=== PATIENT | female | born 1960 | race Caucasian/White ===

== ENCOUNTER 2017-08-04 13:10 | Inpatient (IN) | payer MEDICARE, OTHER ==
[~2017-08-04] VITALS: Ht 154.9 cm; Wt 85.5 kg
[~2017-08-04 13:10] MED LIST: ALDACTONE100 MG PO; BUSPIRONE HCL15 MG PO; FERROUS SULFAT324 MG PO; FUROSEMIDE40 MG PO; METOPROLOL SUCC25 MG PO; MIDODRINE HCL10 MG PO; OMEPRAZOLE20 MG PO; OXYCODONE-ACET1 EAC3 PO; SEROQUEL XR400 MG PO; VIIBRYD40 MG PO
[2017-08-04] MEDS ORDERED: ALBUTEROL SULF 0.083% NEB SOLN 3 ML NEB NEB STA (14:22)
[2017-08-04] MEDS ORDERED: MORPHINE SULFAT30 M2 PO (14:29)
[2017-08-04] MEDS ORDERED: TEMAZEPAM15 MG PO (14:29)
[2017-08-04] MEDS ORDERED: IPRATROPIUM BROMIDE 0.02% 2.5 ML NEB NEB ONE (14:30)
--- NOTE | 2017-08-04 17:13 | History and Physical ---
CHIEF COMPLAINT: Shortness of breath. HISTORY OF PRESENT ILLNESS: This is a 57-year-old white woman, who presents to [facility] Emergency Room with a 1-week history of worsening shortness of breath. The patient states she checks her oxygen at home, and her readings have been around 80%, and that is at rest. The patient complains of slight nonproductive cough. The patient states she does feel ill. Denies any fever or chills. In the emergency room, she was found to have oxygen saturation 74% on 4 L of oxygen. Thus, she was started on 100% nonrebreather mask. The patient's oxygen saturation did improve to 92%. The patient had a chest x-ray done in the emergency room which revealed bilateral interstitial opacities as well as enlargement of the cardiomediastinal silhouette. The patient was found to have BUN and creatinine of 21 and 1.6 respectively, but this is her baseline. The patient was also found to be leukopenic with a white blood cell count of 3900 with 80% segmented neutrophils. Also, the patient's hemoglobin was 10.6 g per dL. Platelets were 75,000. The patient was admitted for further evaluation and treatment. REVIEW OF SYSTEMS GENERAL: Weight has been stable. No fever or chills, but she has been very weak in the last 7 days. HEENT: No headache. No visual changes. CARDIOVASCULAR/RESPIRATORY: Complains of worsening shortness of breath and nonproductive cough over the last week. Denies any chest pain or tightness. GI: Denies any nausea, vomiting, diarrhea, constipation. : No UTI symptoms. NEUROMUSCULAR: Complains of global weakness. Denies any focal limb weakness or numbness. ALLERGIES 1. LYRICA. 2. NEURONTIN. 3. ZANAFLEX. MEDICATIONS 1. Valacyclovir 500 mg b.i.d. 2. Levothyroxine 25 mcg daily. 3. Albuterol/ipratropium nebulized treatments q.i.d. for shortness of breath or wheezing. 4. Combivent inhaler 2 puffs q.i.d. 5. Ropinirole 0.5 mg b.i.d. 6. Lactulose 20 g t.i.d. p.r.n. constipation. 7. Denavir 1% topical cream applied to the cold sore area as needed. 8. BuSpar 15 mg q.i.d. 9. Xyzal 5 mg daily. 10. Viibryd 40 mg daily. 11. Spironolactone 100 mg daily. 12. Pantoprazole 40 mg daily. 13. Metoprolol succinate 25 mg daily. 14. Potassium chloride 20 mEq daily. 15. Furosemide 40 mg b.i.d. 16. Magnesium oxide 400 mg daily. 17. Vitamin B12 1,000 mcg daily. 18. Vitamin D3 2,000 units daily. 19. Morphine sulfate extended release 15 mg q.i.d. 20. Ferrous sulfate 325 mg daily. 21. Seroquel 400 mg nightly. 22. Temazepam 15 mg nightly p.r.n. insomnia. PAST MEDICAL HISTORY 1. Chronic obstructive pulmonary disease. 2. Chronic diastolic congestive heart failure. 3. Liver cirrhosis. 4. Stage-3 chronic kidney disease. 5. Pulmonary hypertension. 6. Tobacco abuse. 7. Depression. 8. Peripheral neuropathy. 9. Chronic marijuana use. 10. Obesity. 11. Bipolar disorder. 12. Pancytopenia secondary to liver cirrhosis. 13. Hepatitis C infection. SURGICAL HISTORY 1. Total abdominal hysterectomy. 2. Lumbar epidural steroid injections. FAMILY HISTORY: Adult daughter with adult-onset diabetes mellitus. SOCIAL HISTORY: This woman is single, but she lives with her adult daughter. The patient does smoke tobacco as well as marijuana. The patient states she drinks alcohol occasionally. Today, she denies any history of intravenous drug use. The patient is unemployed and receiving disability benefits. PHYSICAL EXAMINATION GENERAL: She is awake, alert and fully oriented. She is in no respiratory distress, but she is mildly dyspneic. VITAL SIGNS: Blood pressure 118/75, pulse 82, respiratory rate 22. Oxygen saturation was 74% on 4 L of oxygen, but currently is 92% on nonrebreather mask. Temperature is 96.9. Height is 5 feet 2 inches, and weight is 180 pounds. Calculated body mass index is 33. INTEGUMENT: Skin is warm and dry. No pallor, jaundice or diaphoresis. HEENT: Anicteric sclerae with moist mucous membranes. The patient is edentulous. NECK: Supple. No evidence of jugular venous distention. CARDIOVASCULAR: Distant heart sounds. Regular rate and rhythm with an S3 gallop. LUNGS: The patient has crackles at the bases as well as faint expiratory wheezes bilaterally. ABDOMEN: Obese, benign. EXTREMITIES: Trace edema in the bilateral lower legs. NEUROLOGIC: Intact. No gross focal deficits appreciated. DIAGNOSES 1. Bilateral pneumonia, likely gram-negative alysa. 2. [id number] diastolic congestive heart failure. 3. Chronic obstructive pulmonary disease exacerbation. 4. Stage-3 chronic kidney disease. 5. Pulmonary hypertension. PLAN 1. Order blood cultures. 2. Nebulized bronchodilators. 3. Will continue 100% nonrebreather mask to help address the patient's hypoxia. 4. Will order intravenous furosemide. 5. Follow renal function as well as electrolytes. 6. Will start intravenous antibiotics for the patient's pneumonia. 7. Order a 2-D echocardiogram. 8. Highly recommend tobacco cessation. 9. Highly recommend marijuana smoking cessation. I spent 50 minutes in the care of this patient. Job#: [id number]
[2017-08-04] MEDS: VANCOMYCIN 1GM/NS 250 ML 250 ML IV SCH (17:15)
[2017-08-04] MEDS ORDERED: CEFTRIAXONE SOD 1 GM VIAL IM ONE (18:00)
[2017-08-04 18:21] LABS: CREATINE KINASE MB 1.1 ng/mL (0.00-5.00); TROPONIN I 0.008 ng/mL (0-0.300)
[2017-08-04 20:00] VITALS: BP 106/59
[2017-08-04] MEDS ORDERED: FUROSEMIDE INJ 10 MG/ML 4 ML VIAL IV ONE (21:30)
[2017-08-04] MEDS: TEMAZEPAM 15 MG CAP PO SCH (21:39)
[2017-08-04] MEDS: CEFEPIME HCL 1 GM VIAL IV SCH (21:39)
[2017-08-04] MEDS: BUSPIRONE HCL 5 MG TAB PO SCH (21:39)
[2017-08-04] MEDS ORDERED: QUETIAPINE FUMARATE 400 MG PO SCH (22:00)
[2017-08-04 22:56] VITALS: BP 106/59
[2017-08-04] MEDS ORDERED: ALBUTEROL/IPRATROPIUM 3 ML NEB NEB SCH (23:00)
[2017-08-04] MEDS: MORPHINE SULFATE 15MG TAB CR PO SCH (23:00)
[2017-08-05] VITALS: BP 112/85
[2017-08-05 03:18] VITALS: BP 106/59
[2017-08-05 03:20] VITALS: BP 106/59
--- NOTE | 2017-08-05 06:27 | Diagnostic Imaging Report ---
CHEST SINGLE (PORTABLE), 08/05/2017 5:00 AM Technique: CHEST SINGLE (PORTABLE) Comparison: 04/09/2013 Clinical history: \S\CHF and bibasilar pneumonia \[id number] \S\0540 \S\Y Findings: Heart/mediastinum: Mildly enlarged, accentuated by technique Lungs/pleural spaces: Prominent interstitial and vascular markings. Scattered linear scarring. No effusion or pneumothorax.. Impression: Prominent interstitial markings which may be due to chronic lung change and/or central vascular congestion. Recommend follow-up upright PA and lateral when able. Signed by: Dr Thu Myles MD on 08/05/2017 6:24 AM
[2017-08-05 07:04] LABS: BASOPHILS % 0.3 % (0.0-1.0); EOSINOPHILS % 1.1 % (0.0-6.0); HEMATOCRIT 31.2 % (34.2-44.1); HEMOGLOBIN 10.2 g/dL (12.0-16.0); LYMPHOCYTES # (AUTO) 0.5 (1.0-3.2); MEAN CORPUSCULAR HEMOGLOBIN 32.6 pg (28-32); MEAN CORPUSCULAR HGB CONC 32.7 g/dL (31-35); MEAN CORPUSCULAR VOLUME 99.7 fL (81-99); MONOCYTES # (AUTO) 0.4 (0.2-0.8); MONOCYTES % 10.5 % (4.4-11.3); NEUTROPHILS # (AUTO) 2.7 (2.1-6.9); NEUTROPHILS % 73.5 % (38.7-80.0); RED BLOOD COUNT 3.13 x10e6/uL (3.6-5.1); RED CELL DISTRIBUTION WIDTH 14.2 % (11.7-14.4)
[2017-08-05 07:36] LABS: ALBUMIN 3.4 g/dL (3.5-5.0); ALBUMIN/GLOBULIN RATIO 0.7 (0.8-2.0); ANION GAP 17.4 mmol/L (8-16); CALCIUM 9.1 mg/dL (8.4-10.2); CREATININE, SERUM 1.72 mg/dL (0.57-1.11); POTASSIUM 4.4 mmol/L (3.5-5.1)
[2017-08-05 07:52] LABS: PLATELET COUNT 87 x10e3/uL (140-360)
[2017-08-05] MEDS: FERROUS SULFATE 325 MG TAB PO SCH (08:01)
[2017-08-05] MEDS: BUSPIRONE HCL 5 MG TAB PO SCH ×4 (08:01→21:00)
[2017-08-05] MEDS: PANTOPRAZOLE SOD 40 MG TABEC PO SCH (08:01)
[2017-08-05] MEDS: MORPHINE SULFATE 15MG TAB CR PO SCH ×3 (08:01→21:56)
[2017-08-05] MEDS: FUROSEMIDE 40 MG TAB PO SCH (08:01)
[2017-08-05] MEDS: CEFEPIME HCL 1 GM VIAL IV SCH ×2 (08:01→21:00)
[2017-08-05] MEDS: METOPROLOL SUCCINATE 25 MG TAB XL PO SCH (08:02)
[2017-08-05] MEDS: VILAZODONE HYDROCHLORIDE 40 MG PO SCH (08:02)
[2017-08-05 08:07] LABS: CREATINE KINASE MB 0.9 ng/mL (0.00-5.00); TROPONIN I 0.012 ng/mL (0-0.300)
[2017-08-05] MEDS ORDERED: METOPROLOL TARTRATE INJ 1 MG/ML VIAL IV STA ×2 (08:20→08:49)
[2017-08-05] MEDS ORDERED: FUROSEMIDE INJ 10 MG/ML 4 ML VIAL IV ONE ×2 (08:30→09:00)
[2017-08-05] MEDS ORDERED: LORAZEPAM 0.5 MG TAB PO ONE ×2 (08:30→09:00)
[2017-08-05] MEDS ORDERED: MORPHINE SULFATE 30 MG TAB ER PO SCH (09:00)
[2017-08-05 10:39] VITALS: BP 114/64
[2017-08-05] MEDS: LEVALBUTEROL HCL SOLN NEBU 0.63 MG/3 ML NEB INH SCH ×3 (11:00→20:30)
[2017-08-05] MEDS: IPRATROPIUM BROMIDE 0.02% 2.5 ML NEB NEB SCH ×3 (11:00→20:30)
[2017-08-05] MEDS ORDERED: DIGOXIN INJ 0.25 MG/ML 2 ML AMP IV STA (11:11)
[2017-08-05] MEDS ORDERED: SODIUM CHLORIDE 0.9% 250ML 250 ML ONE (16:34)
[2017-08-05] MEDS: VANCOMYCIN 1GM/NS 250 ML 250 ML IV SCH (16:40)
[2017-08-05 16:56] VITALS: BP 104/50
[2017-08-05] MEDS ORDERED: DIGOXIN INJ 0.25 MG/ML 2 ML AMP IV ONE (17:00)
[2017-08-05 17:21] LABS: CREATINE KINASE MB 0.8 ng/mL (0.00-5.00); TROPONIN I 0.011 ng/mL (0-0.300)
[2017-08-05] MEDS ORDERED: VANCOMYCIN HCL 1GM/NS 250 ML BAG IV SCH (17:30)
[2017-08-05 20:00] VITALS: BP 97/58
[2017-08-05] MEDS: TEMAZEPAM 15 MG CAP PO SCH (21:00)
[2017-08-06] VITALS: BP 101/65
[2017-08-06] MEDS: IPRATROPIUM BROMIDE 0.02% 2.5 ML NEB NEB SCH ×6 (01:00→23:25)
[2017-08-06] MEDS: LEVALBUTEROL HCL SOLN NEBU 0.63 MG/3 ML NEB INH SCH ×6 (01:00→23:25)
[2017-08-06 04:00] VITALS: BP 96/68
[2017-08-06] MEDS: MORPHINE SULFATE 15MG TAB CR PO SCH ×3 (06:00→21:39)
[2017-08-06 07:08] LABS: BASOPHILS % 0.3 % (0.0-1.0); EOSINOPHILS # (AUTO) 0.1 (0.0-0.4); HEMATOCRIT 30.2 % (34.2-44.1); HEMOGLOBIN 9.6 g/dL (12.0-16.0); LYMPHOCYTES # (AUTO) 0.4 (1.0-3.2); LYMPHOCYTES % 14.7 % (18.0-39.1); MEAN CORPUSCULAR HEMOGLOBIN 31.9 pg (28-32); MEAN CORPUSCULAR HGB CONC 31.8 g/dL (31-35); MEAN CORPUSCULAR VOLUME 100.3 fL (81-99); MONOCYTES # (AUTO) 0.3 (0.2-0.8); MONOCYTES % 9.3 % (4.4-11.3); NEUTROPHILS # (AUTO) 2.2 (2.1-6.9); PLATELET COUNT 63 x10e3/uL (140-360); RED BLOOD COUNT 3.01 x10e6/uL (3.6-5.1); RED CELL DISTRIBUTION WIDTH 13.6 % (11.7-14.4)
[2017-08-06 07:30] LABS: ANION GAP 14.5 mmol/L (8-16); CALCIUM 9.2 mg/dL (8.4-10.2); CREATININE, SERUM 1.54 mg/dL (0.57-1.11); POTASSIUM 3.5 mmol/L (3.5-5.1)
[2017-08-06 07:57] VITALS: BP 102/55
[2017-08-06 08:27] LABS: EOSINOPHILS % (MANUAL) 1 % (0-7); LYMPHOCYTES % (MANUAL) 16 % (19-48); MONOCYTES % (MANUAL) 6 % (3.4-9.0); NEUTROPHILS % (MANUAL) 77 % (40-74); PLATELET ESTIMATE MODERATELY DECREASED; PLATELET MORPHOLOGY COMMENT NORMAL; RBC MORPHOLOGY COMMENT NORMAL
[2017-08-06] MEDS: VILAZODONE HYDROCHLORIDE 40 MG PO SCH (09:00)
[2017-08-06] MEDS: CEFEPIME HCL 1 GM VIAL IV SCH ×2 (09:23→21:00)
[2017-08-06] MEDS: BUSPIRONE HCL 5 MG TAB PO SCH ×4 (09:23→21:00)
[2017-08-06] MEDS: FUROSEMIDE 40 MG TAB PO SCH (09:24)
[2017-08-06] MEDS: PANTOPRAZOLE SOD 40 MG TABEC PO SCH (09:24)
[2017-08-06] MEDS: METOPROLOL SUCCINATE 25 MG TAB XL PO SCH (09:24)
[2017-08-06] MEDS: FERROUS SULFATE 325 MG TAB PO SCH (09:24)
[2017-08-06] MEDS ORDERED: FUROSEMIDE INJ 10 MG/ML 4 ML VIAL IV ONE (10:00)
[2017-08-06] MEDS ORDERED: POTASSIUM CHLORIDE 10 MEQ TABCR PO ONE (10:00)
[2017-08-06 11:38] VITALS: BP 132/70
[2017-08-06 15:50] VITALS: BP 138/62
[2017-08-06] MEDS: VANCOMYCIN 1GM/NS 250 ML 250 ML IV SCH (17:20)
--- NOTE | 2017-08-06 18:09 | Diagnostic Imaging Report ---
PROCEDURE: Frontal and lateral views of the chest. COMPARISON: 08/05/2017 INDICATIONS: SOB, COPD FINDINGS: Lines/tubes: None. Lungs: There are diffuse interstitial opacities. There is thickening of the minor fissure.. Pleura: Blunting of the costophrenic angles may be due to pleural thickening or trace pleural effusions. No pneumothorax. Heart and mediastinum: The heart and the mediastinum are normal. Bones: No acute bony abnormality. The bones are diffusely osteopenic. IMPRESSION: Diffuse interstitial opacities with trace pleural effusions or pleural thickening. The findings may represent interstitial edema or chronic interstitial lung disease. This patient may benefit from a CT of the chest. Dictated by: Rashi Hassan M.D. on 08/06/2017 at 18:18 Electronically approved by: Rashi Hassan M.D. on 08/06/2017 at 18:18
[2017-08-06 20:20] VITALS: BP 136/61
[2017-08-06] MEDS: TEMAZEPAM 15 MG CAP PO SCH (21:00)
[2017-08-07] VITALS: BP 108/56
[2017-08-07] MEDS: IPRATROPIUM BROMIDE 0.02% 2.5 ML NEB NEB SCH ×4 (03:03→14:25)
[2017-08-07] MEDS: LEVALBUTEROL HCL SOLN NEBU 0.63 MG/3 ML NEB INH SCH ×4 (03:03→14:25)
[2017-08-07 04:45] VITALS: BP 130/78
[2017-08-07] MEDS: MORPHINE SULFATE 15MG TAB CR PO SCH ×2 (05:42→14:00)
[2017-08-07 07:35] VITALS: BP 112/58
[2017-08-07 07:37] LABS: BASOPHILS % 0.5 % (0.0-1.0); EOSINOPHILS # (AUTO) 0.1 (0.0-0.4); EOSINOPHILS % 1.7 % (0.0-6.0); HEMATOCRIT 30.9 % (34.2-44.1); HEMOGLOBIN 10.3 g/dL (12.0-16.0); LYMPHOCYTES # (AUTO) 0.6 (1.0-3.2); LYMPHOCYTES % 13.9 % (18.0-39.1); MEAN CORPUSCULAR HEMOGLOBIN 32.4 pg (28-32); MEAN CORPUSCULAR HGB CONC 33.3 g/dL (31-35); MEAN CORPUSCULAR VOLUME 97.2 fL (81-99); MONOCYTES # (AUTO) 0.4 (0.2-0.8); MONOCYTES % 9.3 % (4.4-11.3); NEUTROPHILS % 74.4 % (38.7-80.0); PLATELET COUNT 62 x10e3/uL (140-360); RED BLOOD COUNT 3.18 x10e6/uL (3.6-5.1); RED CELL DISTRIBUTION WIDTH 13.8 % (11.7-14.4)
[2017-08-07 07:42] VITALS: BP 112/58
[2017-08-07 08:00] LABS: ANION GAP 13.2 mmol/L (8-16); CALCIUM 8.9 mg/dL (8.4-10.2); CREATININE, SERUM 1.23 mg/dL (0.57-1.11); MAGNESIUM 1.7 MG/DL (1.3-2.1); POTASSIUM 3.2 mmol/L (3.5-5.1)
[2017-08-07] MEDS: METOPROLOL SUCCINATE 25 MG TAB XL PO SCH (09:00)
[2017-08-07] MEDS: VILAZODONE HYDROCHLORIDE 40 MG PO SCH (09:00)
[2017-08-07] MEDS ORDERED: POTASSIUM CHLORIDE 20 MEQ TAB CR PO ONE ×2 (09:00→16:30)
[2017-08-07] MEDS: FUROSEMIDE 40 MG TAB PO SCH (09:27)
[2017-08-07] MEDS: CEFEPIME HCL 1 GM VIAL IV SCH (09:27)
[2017-08-07] MEDS: PANTOPRAZOLE SOD 40 MG TABEC PO SCH (09:27)
[2017-08-07] MEDS: FERROUS SULFATE 325 MG TAB PO SCH (09:27)
[2017-08-07] MEDS: BUSPIRONE HCL 5 MG TAB PO SCH ×2 (09:27→13:52)
[2017-08-07 11:57] VITALS: BP 110/53
[2017-08-07 16:11] VITALS: BP 119/59
[2017-08-07] MEDS ORDERED: LASIX40 MG PO (16:50)
[2017-08-07] MEDS ORDERED: CEFUROXIME500 MG PO (16:53)
[2017-08-07] MEDS ORDERED: CEFTIN250 MG/5 M PO (16:55)
--- NOTE | 2017-08-08 15:57 | Discharge Summary ---
This is a 57-year-old female with a past medical history positive for COPD who came here with a 1-week history of worsening shortness of breath. Apparently the oxygen saturation at home was around 80%. Chest x-ray done in the emergency room revealed bilateral interstitial opacities as well as enlargement of the cardiomediastinal silhouette. Patient was diagnosed with COPD exacerbation, pneumonia, diastolic CHF, chronic AFib, cirrhosis, pulmonary hypertension by Dr. Dumont. She is feeling better. She is going home tomorrow. Oxygen saturation is 99%. She is on oxygen right now. She is asymptomatic. She is feeling better. On physical exam, the heart shows regular rhythm, normal S1, S2 sounds. Lungs are clear bilaterally. Abdomen is soft. Extremities show no evidence of cyanosis, edema or trauma. On the blood work, BNP 140, potassium 3.2, chloride 95, CO2 35, BUN 13, creatinine 1.23, glucose 100. CBC: White blood count 4.09, hemoglobin 10.3, hematocrit 30.9, platelet count 62,000. AST 27, ALT 9, total bilirubin 0.6, alkaline phosphatase 87. FINAL IMPRESSION 1. Bilateral pneumonia. 2. Chronic obstructive pulmonary disease exacerbation. 3. Atrial fibrillation with rapid ventricular response. 4. Acute diastolic congestive heart failure. 5. Pulmonary hypertension. 6. Anxiety. 7. Chronic renal insufficiency, stage 3. PLAN OF TREATMENT: Patient is going home on Ceftin 500 mg twice a day for 7 days, potassium 20 mEq daily, Lasix 40 mg twice a day. Continue with the home oxygen. Continue with Protonix 40 mg daily. Continue with ferrous sulfate 325 mg daily. He is taking also BuSpar 15 mg q.6 h. as needed and metoprolol 25 mg daily. The patient is going to follow up with Dr. Dumont in a week. ELIOT MCDONALD MD Job#: [id number]
== END 2017-08-07 18:14 | disposition home or self-care (01) | DRG 177 ==
LOC: FSED 13:10 → EDBEDREQ 17:09 → MED/SURG3 19:23
PROVIDERS: ADMIT Internal Medicine; ATTEND Internal Medicine
DX: J15.6 Pneumonia due to other Gram-negative bacteria (principal); I50.33 Acute on chronic diastolic (congestive) heart failure; I27.20 Pulmonary hypertension, unspecified; K74.60 Unspecified cirrhosis of liver; I48.2 Chronic atrial fibrillation; J44.1 Chronic obstructive pulmonary disease with (acute) exacerbation; N18.3 Chronic kidney disease, stage 3 (moderate); R32 Unspecified urinary incontinence; F11.90 Opioid use, unspecified, uncomplicated; R09.02 Hypoxemia; I48.91 Unspecified atrial fibrillation; F41.9 Anxiety disorder, unspecified
CPT/HCPCS: 36415; 71045; 71046; 80048; 80053; 82550; 82553; 83735; 83880; 84484; 85025; 93005; 93306; 94640; 94760; 96376; 97139; 99284; J0692; J0696; J1160; J1940; J3370; J7050